=== PATIENT | female | born 1960 | race Caucasian/White ===

== ENCOUNTER 2017-10-13 09:13 | Day surgery (SDC) | payer BC ==
[2017-10-11 13:50] LABS: BASOPHILS # (AUTO) 0.1 K/uL (0.0-0.2); BASOPHILS % (AUTO) 0.8 % (0.0-2.0); EOSINOPHILS # (AUTO) 0.1 K/uL (0.0-0.4); EOSINOPHILS % (AUTO) 1.3 % (0.0-4.0); HEMATOCRIT 38.6 % (36-48); HEMOGLOBIN 12.7 g/dL (12.0-16.0); LYMPHOCYTES # (AUTO) 1.5 K/uL (1.0-5.5); MEAN CORPUSCULAR HEMOGLOBIN 30 pg (27-31); MEAN CORPUSCULAR HGB CONC 33 % (32-36); MEAN CORPUSCULAR VOLUME 90 fL (79.0-98.0); MONOCYTES # (AUTO) 0.4 K/uL (0.0-1.0); MONOCYTES % (AUTO) 5.4 % (1.7-9.3); NEUTROPHILS # (AUTO) 5.6 K/uL (1.8-7.7); NEUTROPHILS % (AUTO) 72.5 % (40.0-70.0); PLATELET COUNT (AUTO) 233 K/uL (130-430); RED CELL DISTRIBUTION WIDTH 13.4 % (9.0-15.0); WHITE BLOOD COUNT (AUTO) 7.7 K/uL (4.8-10.8)
[2017-10-11 13:52] LABS: BILIRUBIN,URINE NEGATIVE (NEGATIVE); BLOOD, URINE NEGATIVE (NEGATIVE); CLARITY/URINE CLEAR (CLEAR); COLOR,URINE YELLOW (YELLOW); GLUCOSE,URINE NEGATIVE (NEGATIVE); KETONES,URINE NEGATIVE (NEGATIVE); LEUKOCYTE ESTERASE ,URINE NEGATIVE (NEGATIVE); NITRITE, URINE NEGATIVE (NEGATIVE); PROTEIN URINE NEGATIVE (NEGATIVE); UROBILINOGEN,URINE 0.2 (0.2-1.0)
[2017-10-11 14:21] LABS: CALCIUM 8.7 mg/dL (8.4-11.0); CREATININE 0.63 mg/dL (0.55-1.30); POTASSIUM 3.6 mmol/L (3.5-5.1)
[2017-10-11 14:33] LABS: PROTHROMBIN TIME 9.9 SECS (9.5-12.5)
[~2017-10-13] VITALS: Ht 167.6 cm; Wt 93.0 kg
[~2017-10-13 09:13] MED LIST: CEFAZOLIN SOD 1 GM/ ISO 50 ML PREMIX IV ONE
[2017-10-13] MEDS ORDERED: SEVOFLURANE 15 MIN GAS INH ONE (09:14)
[2017-10-13] MEDS ORDERED: LR 1,000 ML IV.SOLN IV ONE (09:14)
[2017-10-13] MEDS ORDERED: KETOROLAC TROMETHAMINE 30 MG VIAL IVP ONE (09:14)
[2017-10-13] MEDS ORDERED: PROPOFOL 200MG/ 20ML VIAL (DIPRIVAN) IV ONE (09:14)
[2017-10-13] MEDS ORDERED: ROCURONIUM BROMIDE 10 MG/ML (ZEMURON) IV ONE (09:14)
[2017-10-13] MEDS ORDERED: NS IRRIG SOLN 5000 ML IR ONE (09:14)
[2017-10-13] MEDS ORDERED: CEFAZOLIN 1 GM IVPB PREMIX 50 ML IV ONE (09:14)
[2017-10-13] MEDS ORDERED: NS IRRIG SOLN 1000 ML IR ONE (09:14)
[2017-10-13] MEDS ORDERED: MORPHINE SULFATE 10MG/10ML PF AMP EP ONE (09:14)
[2017-10-13] MEDS ORDERED: BETAMET ACET/BETAMET NA PH 30 MG/5 ML VIAL IM ONE (09:14)
[2017-10-13] MEDS ORDERED: BUPIVACAINE /PF 0.5% 30 ML VIAL INJ ONE (09:14)
[2017-10-13] MEDS ORDERED: fentaNYL CITRATE/PF 100 MCG/2 ML AMP IVP ONE (09:14)
[2017-10-13] MEDS ORDERED: BUPIVACAINE /EPINEPHRINE/PF 0.5% 30 ML VIAL INJ ONE (09:14)
[2017-10-13] MEDS ORDERED: MIDAZOLAM HCL 5 MG/ML VIAL (VERSED) IV ONE (09:14)
[2017-10-13] MEDS ORDERED: ONDANSETRON HCL 4 MG/2 ML VIAL IVP ONE (09:14)
[2017-10-13] MEDS ORDERED: LR 1,000 ML IV SCH ×2 (12:59→13:20)
[2017-10-13] MEDS ORDERED: HYDROmorphone 2 MG/ML VIAL IVP PRN (13:00)
[2017-10-13] MEDS ORDERED: METOCLOPRAMIDE HCL 10 MG/2 ML VIAL IVP PRN (13:00)
[2017-10-13] MEDS ORDERED: HYDROmorphone 1 MG INJ. 1 MG/ML AMPUL IVP PRN ×2 (13:00)
[2017-10-13] MEDS ORDERED: HYDROcodone/ACETAMIN 5-325 MG TAB (NORCO/ VICODIN) PO PRN (13:30)
[2017-10-13] MEDS ORDERED: DIPHENHYDRAMINE HCL 25 MG CAPSULE PO PRN (13:30)
[2017-10-13] MEDS ORDERED: MORPHINE 2 MG/ML INJ. SYRINGE IVP PRN (13:30)
[2017-10-13] MEDS ORDERED: ACETAMINOPHEN 325 MG TABLET PO PRN (13:30)
[2017-10-13] MEDS ORDERED: HYDROmorphone 2 MG/ML VIAL ONE (13:31)
[2017-10-13] MEDS ORDERED: METOCLOPRAMIDE HCL 10 MG/2 ML VIAL ONE (13:38)
[2017-10-13 17:31] VITALS: BP_SYST 121
== END 2017-10-13 15:25 | disposition home or self-care (01) ==
LOC: SDS 09:13 → SMU 09:14 → SDS 15:25
PROVIDERS: ATTEND Orthopaedic Surgery
DX: M23.222 Derangement of posterior horn of medial meniscus due to old tear or injury, left knee (principal); M22.42 Chondromalacia patellae, left knee; M17.12 Unilateral primary osteoarthritis, left knee; E66.9 Obesity, unspecified; Z87.891 Personal history of nicotine dependence; M19.90 Unspecified osteoarthritis, unspecified site; K21.9 Gastro-esophageal reflux disease without esophagitis; M79.7 Fibromyalgia; F32.9 Major depressive disorder, single episode, unspecified; Z90.710 Acquired absence of both cervix and uterus; M81.0 Age-related osteoporosis without current pathological fracture
CPT/HCPCS: 29879; 29881; 36415; 71020; 80048; 81003; 85025; 85610; 85730; J0690; J1170; J2765; J7120; J0702; J1885; J2250; J2274; J2405; J2704; J3010; J3490

== ENCOUNTER 2019-01-16 09:55 | Outpatient (CLI) | payer BC ==
[2019-01-16] MEDS ORDERED: BARIUM SULFATE 135 ML SUSP.RECON (E-Z-HD) PO ONE (10:32)
== END 2019-01-16 19:23 | disposition home or self-care (01) ==
LOC: SRD 09:55
PROVIDERS: ATTEND Internal Medicine Gastroenterology
DX: K21.9 Gastro-esophageal reflux disease without esophagitis (principal)
CPT/HCPCS: 74220-TC